=== PATIENT | female | born 1990 | race Caucasian/White ===

== ENCOUNTER → 2018-07-09 | Outpatient (CLI) | payer OTHER | END | disposition home or self-care (01) | LOC: LABWHC1 16:06 | PROVIDERS: ATTEND Internal Medicine | DX: Z34.90 Encounter for supervision of normal pregnancy, unspecified, unspecified trimester (principal) | CPT/HCPCS: 36415; 84702 ==

== ENCOUNTER 2018-07-13 20:00 | Emergency (ER) | payer OTHER ==
[2018-07-13] MEDS ORDERED: ACETAMINOPHEN TAB 500 MG TAB PO STA (20:42)
[2018-07-13] MEDS ORDERED: SODIUM CHLORIDE 0.9% 1,000 ML IV ONE (20:42)
--- NOTE | 2018-07-13 20:48 | ED ---
Abdominal Pain HPI - General Chief Complaint: Abdominal Pain Stated Complaint: 6 Weeks ,bleeding Time Seen by Provider: 07/13/18 20:10 Source: patient Mode of arrival: wheelchair Limitations: no limitations - History of Present Illness Initial Comments: 28-year-old female patient presents to the emergency department today for evaluation of suprapubic cramping and vaginal bleeding. Patient states that she is approximately 6 weeks . Patient is [id number]. She sees a Dr. Oconnor in [place] for obstetric care. Patient states that the bleeding started this morning. Patient states she has been wearing a pad but it is light bleeding. She has not had to change the pad. Patient denies any radiation of the pain through to her back. Patient denies any hematuria, dysuria, urinary frequency, urinary urgency. Patient is unsure when her last period was, states have been very irregular for the last couple of years. Patient did have Hcg level of 1700 on Friday. Patient denies any recent rash, fever, chills, shortness breath, chest pain, nausea, vomiting, diarrhea, constipation, back pain, numbness, tingling, dizziness, weakness, headache, visual changes, or any other complaints. - Related Data Home Medications Medication Instructions Recorded Confirmed Pnv,Calcium 72/Iron/Folic Acid 1 tab PO DAILY 03/11/16 07/13/18 [ Plus Tablet] Methadone HCl [Methadone Intensol] 95 mg PO DAILY 07/13/18 07/13/18 Allergies Allergy/AdvReac Type Severity Reaction Status Date / Time No Known Allergies Allergy Verified 07/13/18 20:40 Review of Systems ROS Statement: Those systems with pertinent positive or pertinent negative responses have been documented in the HPI. ROS Other: All systems not noted in ROS Statement are negative. Past Medical History Past Medical History: No Reported History History of Any Multi-Drug Resistant Organisms: None Reported Past Surgical History: Section Additional Past Surgical History / Comment(s): d&C, TONGUE CLIPPING Past Anesthesia/Blood Transfusion Reactions: No Reported Reaction Past Psychological History: Anxiety, Bipolar Smoking Status: Current every day smoker Past Alcohol Use History: None Reported Past Drug Use History: None Reported - Past Family History Father Family Medical History: No Reported History General Exam Limitations: no limitations General appearance: alert, in no apparent distress, other (Physical well- developed, well-nourished adult female patient in no acute distress. Vital signs upon presentation are temperature 97.9F, pulse 87, respiration 16, blood pressure 131/70, pulse ox 100% on room air.) Eye exam: Present: normal appearance, PERRL, EOMI. Absent: scleral icterus, conjunctival injection, periorbital swelling ENT exam: Present: normal exam, normal oropharynx, mucous membranes moist Respiratory exam: Present: normal lung sounds bilaterally. Absent: respiratory distress, wheezes, rales, rhonchi, stridor Cardiovascular Exam: Present: regular rate, normal rhythm, normal heart sounds. Absent: systolic murmur, diastolic murmur, rubs, gallop, clicks GI/Abdominal exam: Present: soft, tenderness (Suprapubic tenderness), normal bowel sounds. Absent: distended, guarding, rebound, rigid Neurological exam: Present: alert, oriented X3, CN II-XII intact Psychiatric exam: Present: normal affect, normal mood Skin exam: Present: warm, dry, intact, normal color. Absent: rash Course Vital Signs 07/13/18 07/13/18 20:01 23:33 Temperature 97.9 F 97.8 F Pulse Rate 87 89 Respiratory 16 18 Rate Blood Pressure 131/70 125/89 O2 Sat by Pulse 100 100 Oximetry Medical Decision Making - Medical Decision Making 28-year-old female patient presented to the emergency department today for evaluation of vaginal bleeding and pelvic pain. Physical examination did reveal mild suprapubic abdominal tenderness. Pelvic exam was performed, did show minimal bleeding from the cervical os. There is minimal bilateral adnexal tende rness. Labs reviewed and are unremarkable. HCG is currently 1090 down from 1700 on Friday. Ultrasound was obtained and did show a lesion in the left pelvis with high suspicion for ectopic . I did discuss the case with on-call PLANT MAINTENANCE ENGINEER Dr. Dodge, we did review patient's ultrasound and lab findings, Dr. Dodge agrees this has high suspicion for ectopic and recommends methotrexate administration. I did discuss the plan with the patient, she does agree to receive the methotrexate. She is instructed to follow-up with the PLANT MAINTENANCE ENGINEER for recheck as soon as possible. I did give her Dr. Dodge's information for follow-up however she does want to try to follow-up with her current PLANT MAINTENANCE ENGINEER Dr. Oconnor in [place]. Return parameters were discussed in detail. She verbalizes understanding and agrees with this plan - Lab Data Result diagrams: 07/13/18 20:17 07/13/18 20:17 Lab Results 07/13/18 07/13/18 07/13/18 Range/Units 20:17 20:17 20:17 WBC 10.7 H (3.8-10.6) k/uL RBC 4.82 (3.80-5.40) m/uL Hgb 13.5 (11.4-16.0) gm/dL Hct 40.9 (34.0-46.0) % MCV 84.8 (80.0-100.0) fL MCH 27.9 (25.0-35.0) pg MCHC 33.0 (31.0-37.0) g/dL RDW 14.2 (11.5-15.5) % Plt Count 275 (150-450) k/uL Neutrophils % 66 % Lymphocytes % 26 % Monocytes % 5 % Eosinophils % 1 % Basophils % 1 % Neutrophils # 7.0 (1.3-7.7) k/uL Lymphocytes # 2.7 (1.0-4.8) k/uL Monocytes # 0.6 (0-1.0) k/uL Eosinophils # 0.1 (0-0.7) k/uL Basophils # 0.1 (0-0.2) k/uL Sodium 140 (137-145) mmol/L Potassium 4.1 (3.5-5.1) mmol/L Chloride 107 (98-107) mmol/L Carbon Dioxide 25 (22-30) mmol/L Anion Gap 8 mmol/L BUN 6 L (7-17) mg/dL Creatinine 0.63 (0.52-1.04) mg/dL Est GFR (CKD-EPI)AfAm >90 (>60 ml/min/1.73 sqM) Est GFR (CKD-EPI)NonAf >90 (>60 ml/min/1.73 sqM) Glucose 90 (74-99) mg/dL Calcium 9.5 (8.4-10.2) mg/dL Total Bilirubin 0.2 (0.2-1.3) mg/dL AST 22 (14-36) U/L ALT 30 (9-52) U/L Alkaline Phosphatase 81 (38-126) U/L Total Protein 7.1 (6.3-8.2) g/dL Albumin 4.4 (3.5-5.0) g/dL HCG, Quant 1090.8 mIU/mL Urine Color Urine Appearance (Clear) Urine pH (5.0-8.0) Ur Specific [place] (1.001-1.035) Urine Protein (Negative) Urine Glucose (UA) (Negative) Urine Ketones (Negative) Urine Blood (Negative) Urine Nitrite (Negative) Urine Bilirubin (Negative) Urine Urobilinogen (<2.0) mg/dL Ur Leukocyte Esterase (Negative) Urine RBC (0-5) /hpf Urine WBC Clumps (None) /hpf Ur Squamous Epith Cells (0-4) /hpf Urine Mucus (None) /hpf Blood Type O Positive Blood Type Recheck No 07/13/18 Range/Units 20:17 WBC (3.8-10.6) k/uL RBC (3.80-5.40) m/uL Hgb (11.4-16.0) gm/dL Hct (34.0-46.0) % MCV (80.0-100.0) fL MCH (25.0-35.0) pg MCHC (31.0-37.0) g/dL RDW (11.5-15.5) % Plt Count (150-450) k/uL Neutrophils % % Lymphocytes % % Monocytes % % Eosinophils % % Basophils % % Neutrophils # (1.3-7.7) k/uL Lymphocytes # (1.0-4.8) k/uL Monocytes # (0-1.0) k/uL Eosinophils # (0-0.7) k/uL Basophils # (0-0.2) k/uL Sodium (137-145) mmol/L Potassium (3.5-5.1) mmol/L Chloride (98-107) mmol/L Carbon Dioxide (22-30) mmol/L Anion Gap mmol/L BUN (7-17) mg/dL Creatinine (0.52-1.04) mg/dL Est GFR (CKD-EPI)AfAm (>60 ml/min/1.73 sqM) Est GFR (CKD-EPI)NonAf (>60 ml/min/1.73 sqM) Glucose (74-99) mg/dL Calcium (8.4-10.2) mg/dL Total Bilirubin (0.2-1.3) mg/dL AST (14-36) U/L ALT (9-52) U/L Alkaline Phosphatase (38-126) U/L Total Protein (6.3-8.2) g/dL Albumin (3.5-5.0) g/dL HCG, Quant mIU/mL Urine Color Light Red Urine Appearance Cloudy H (Clear) Urine pH 7.0 (5.0-8.0) Ur Specific [place] 1.026 (1.001-1.035) Urine Protein 1+ H (Negative) Urine Glucose (UA) Negative (Negative) Urine Ketones Negative (Negative) Urine Blood Large H (Negative) Urine Nitrite Negative (Negative) Urine Bilirubin Negative (Negative) Urine Urobilinogen 2.0 (<2.0) mg/dL Ur Leukocyte Esterase Small H (Negative) Urine RBC >182 H (0-5) /hpf Urine WBC Clumps Few H (None) /hpf Ur Squamous Epith Cells 6 H (0-4) /hpf Urine Mucus Occasional H (None) /hpf Blood Type Blood Type Recheck - Radiology Data Radiology results: report reviewed, image reviewed Obstetrical ultrasound was obtained. Report was reviewed in its entirety. Impression by Dr. Burris shows strong suspicion for ectopic in the left pelvis adjacent left ovary as detailed above. Advised urgent OB consult. Disposition Clinical Impression: Ectopic Disposition: HOME SELF-CARE Condition: Good Instructions (If sedation given, give patient instructions): Methotrexate (By injection), Ectopic (DC) Additional Instructions: Follow-up with your PLANT MAINTENANCE ENGINEER as soon as possible. Dr. Dodge will see you in her office if you're unable to get into your OB. Return to the emergency department immediately for any new, worsening, or concerning symptoms per Is patient prescribed a controlled substance at d/c from ED?: No Referrals: Mohinder Oconnor MD [Primary Care Provider] - 1-2 days Samaria Dodge DO [Doctor of Osteopathic Medicine] - 1-2 days Time of Disposition: 22:49
[2018-07-13 21:02] LABS: Appearance,Urine Cloudy (Clear); Basophils # (A) 0.1 k/uL (0-0.2); Basophils % (A) 1 %; Bilirubin,Urine Negative (Negative); Blood,Urine Large (Negative); Color,Urine Light Red; Eosinophils # (A) 0.1 k/uL (0-0.7); Eosinophils % (A) 1 %; Glucose,Urine (UA) Negative (Negative); HCT 40.9 % (34.0-46.0); HGB 13.5 gm/dL (11.4-16.0); Ketones,Urine Negative (Negative); Leukocyte Esterase,Urine Small (Negative); Lymphocytes # (A) 2.7 k/uL (1.0-4.8); Lymphocytes % (A) 26 %; MCH 27.9 pg (25.0-35.0); MCV 84.8 fL (80.0-100.0); Mean Platelet Volume 8.3; Monocytes # (A) 0.6 k/uL (0-1.0); Monocytes % (A) 5 %; Mucus,Urine Occasional /hpf; Neutrophils % (A) 66 %; Nitrite,Urine Negative (Negative); Platelet Count 275 k/uL (150-450); Protein,Urine 1+ (Negative); RBC 4.82 m/uL (3.80-5.40); RBC,Urine >182 /hpf (0-5); RDW 14.2 % (11.5-15.5); Specific Gravity,Urine 1.026 (1.001-1.035); Squamous Epithelial Cell,Urine 6 /hpf (0-4); WBC 10.7 k/uL (3.8-10.6)
[2018-07-13 21:08] LABS: ALT 30 U/L (9-52); AST 22 U/L (14-36); Albumin 4.4 g/dL (3.5-5.0); Alkaline Phosphatase 81 U/L (38-126); Anion Gap 8 mmol/L; Blood Urea Nitrogen 6 mg/dL (7-17); Calcium 9.5 mg/dL (8.4-10.2); Carbon Dioxide 25 mmol/L (22-30); Chloride 107 mmol/L (98-107); Glucose 90 mg/dL (74-99); Potassium 4.1 mmol/L (3.5-5.1); Sodium 140 mmol/L (137-145); Total Bilirubin 0.2 mg/dL (0.2-1.3); Total Protein 7.1 g/dL (6.3-8.2)
[2018-07-13 21:24] LABS: HCG,Quantitative Serum 1090.8 mIU/mL
--- NOTE | 2018-07-13 22:10 | US ---
EXAMINATION TYPE: Transabdominal DATE OF EXAM: 07/13/2018 9:44 PM COMPARISON: NONE CLINICAL HISTORY: Pain. Pain and bleeding. EXAM PERFORMED: Transvaginal (TV) and Transabdominal (TA) EXAM MEASUREMENTS: GESTATIONAL AGE / DATING Physician Established: Not yet established Dates by LMP: LMP unknown Dates by First Scan: No previous this is first scan Dates by Current Scan for: No IUP seen at this time MATERNAL ANATOMY Uterus: 6.8 x 4.7 x 6.3 cm Right Ovary: 2.4 x 1.3 x 1.4 cm Left Ovary: 3.9 x 2.1 x 3.4 cm Post CDS / Adnexa: Left adnexal mass adjacent to ovary 3.4 x 2.0 x 2.2 cm suggestive of ectopic preg abram. Presence of free fluid: yes Presence of corpus luteal cyst: yes Presence of subchorionic bleed: no GESTATION / SURVEY IUP: No IUP seen at this time Beta HcG (if available): 1090.8 Left adnexal mass adjacent to left ovary 3.4 x 2.0 x 2.2cm suggestive of ectopic . Heterogeneous uterus is seen. Endometrium is thickened to 11 mm. No gestational sac, yolk sac, pole is present. There is small to moderate amount free fluid in pelvic cul-de-sac. Fluid appears not completely anechoic or nonsimple suggesting blood product Both ovaries are identified. Adjacent to left ovary with indistinct margins there is suspicious over 4 structure with central cystic component that has rim hyperechoic 2 to 3 mm structure suspicious for a gestational sac and yolk sac. Peripheral vascularity is present. No heart rate detected at this ti me. IMPRESSION: Strong suspicion for ectopic in the left pelvis adjacent to left ovary as ashlyn led above. Advise urgent OB consult.
[2018-07-13] MEDS ORDERED: METHOTREXATE SODIUM (PF) 25 MG/ML 2 ML VIAL IM STA (22:46)
[2018-07-13] MEDS ORDERED: ACET/COD 300 MG/30 MG STARTER PACK 6 TAB BTL PO STA (22:49)
[2018-07-13 23:34] VITALS: BP 125/89; PULSE 89; RESP 18; TEMP 97.8
== END 2018-07-13 23:34 | disposition home or self-care (01) ==
LOC: EC 20:00
DX: O00.90 Unspecified ectopic pregnancy without intrauterine pregnancy (principal); O99.331 Smoking (tobacco) complicating pregnancy, first trimester; F17.200 Nicotine dependence, unspecified, uncomplicated; Z79.891 Long term (current) use of opiate analgesic; Z3A.01 Less than 8 weeks gestation of pregnancy
CPT/HCPCS: 36415; 86900; 86901; 80053; 85025; 81001; 84702; 76801; 76817; 99284; 96360; 96361; 96372; J9260

== ENCOUNTER → 2018-07-17 | Outpatient (CLI) | payer OTHER | LOC: LABWHC1 10:11 | PROVIDERS: ATTEND Obstetrics & Gynecology Obstetrics | DX: O00.90 Unspecified ectopic pregnancy without intrauterine pregnancy (principal); Z3A.00 Weeks of gestation of pregnancy not specified | CPT/HCPCS: 36415; 84702 ==

== ENCOUNTER → 2018-07-20 | Outpatient (CLI) | payer OTHER | LOC: LABWHC1 14:02 | PROVIDERS: ATTEND Obstetrics & Gynecology Obstetrics | DX: O00.90 Unspecified ectopic pregnancy without intrauterine pregnancy (principal) | CPT/HCPCS: 36415; 84702 ==

== ENCOUNTER 2018-08-05 02:02 | Emergency (ER) | payer OTHER ==
[2018-08-05] MEDS ORDERED: SODIUM CHLORIDE 0.9% 500 ML 500 ML IV ONE (02:51)
[2018-08-05 03:54] LABS: Basophils % (A) 1 %; Eosinophils # (A) 0.1 k/uL (0-0.7); Eosinophils % (A) 2 %; HCT 41.6 % (34.0-46.0); HGB 13.4 gm/dL (11.4-16.0); Lymphocytes # (A) 1.6 k/uL (1.0-4.8); Lymphocytes % (A) 21 %; MCH 27.2 pg (25.0-35.0); MCHC 32.2 g/dL (31.0-37.0); MCV 84.3 fL (80.0-100.0); Mean Platelet Volume 7.6; Monocytes # (A) 0.5 k/uL (0-1.0); Monocytes % (A) 7 %; Neutrophils # (A) 5.5 k/uL (1.3-7.7); Neutrophils % (A) 69 %; Platelet Count 350 k/uL (150-450); RBC 4.93 m/uL (3.80-5.40); RDW 13.4 % (11.5-15.5)
--- NOTE | 2018-08-05 03:56 | ED ---
Female Urogenital HPI - General Source: patient Mode of arrival: ambulatory Limitations: no limitations <Allegra Dunaway - Last Filed: 08/05/18 04:29> <Paige Morejon - Last Filed: 08/05/18 05:39> - General Chief complaint: Vaginal Bleeding Stated complaint: Vaginal bleeding, post ectopic Time Seen by Provider: 08/05/18 02:23 - History of Present Illness Initial comments: A8 28-year-old female presenting today for chief complaint of increasing vaginal bleeding. Patient states that she had a recent ectopic and was given methotrexate approximately 19 days prior. Patient states she has had some bleeding and cramping since she states this seemed to have subsided however today she had heavy vaginal bleeding and some mild lower left-sided abdominal cramping. Patient states she was concerned there was complication of the ectopic . She states she has had 2 blood draws outpatient for serum hCGs which which initially was turning downward and she is not sure of the seco nd result. Patient has established care with PEDIATRIC PHYSICAL THERAPY ASSISTANT Dr. Dodge. Patient denies dysuria urgency frequency fever nausea vomiting or any other associated symptoms. Remaining review of systems negative upon arrival patient does not appear in acute distress. She is hemodynamically stable with normal blood pressure and heart rate (Allegar Dunaway) - Related Data Home Medications Medication Instructions Recorded Confirmed Methadone HCl [Methadone Intensol] 95 mg PO DAILY 07/13/18 08/05/18 Allergies Allergy/AdvReac Type Severity Reaction Status Date / Time No Known Allergies Allergy Verified 07/13/18 20:40 Review of Systems ROS Other: All systems not noted in ROS Statement are negative. <Allegra Dunaway - Last Filed: 08/05/18 04:29> ROS Other: All systems not noted in ROS Statement are negative. <Paige Morejon - Last Filed: 08/05/18 05:39> ROS Statement: Those systems with pertinent positive or pertinent negative responses have been documented in the HPI. Past Medical History Past Medical History: No Reported History Additional Past Medical History / Comment(s): ectopic History of Any Multi-Drug Resistant Organisms: None Reported Past Surgical History: Section Additional Past Surgical History / Comment(s): d&C, TONGUE CLIPPING Past Anesthesia/Blood Transfusion Reactions: No Reported Reaction Past Psychological History: Anxiety, Bipolar Smoking Status: Current every day smoker Past Alcohol Use History: None Reported Past Drug Use History: None Reported - Past Family History Father Family Medical History: No Reported History <Allegra Dunaway - Last Filed: 08/05/18 04:29> General Exam Limitations: no limitations <Allegra Dunaway - Last Filed: 08/05/18 04:29> - General Exam Comments Initial Comments: General: The patient is awake and alert, in no distress, and does not appear acutely ill. Eye: Pupils are equal, round and reactive to light, extra-ocular movements are intact. No nystagmus. There is normal conjunctiva bilaterally. No signs of icterus. Ears, nose, mouth and throat: There are moist mucous membranes and no oral lesions. Neck: The neck is supple, there is no tenderness or JVD. Cardiovascular: There is a regular rate and rhythm. No murmur, rub or gallop is appreciated. Respiratory: Lungs are clear to auscultation, respirations are non-labored, breath sounds are equal. No wheezes, stridor, rales, or rhonchi. Gastrointestinal: Soft, non-distended, non-tender abdomen without masses or organomegaly noted. There is no rebound or guarding present. No CVA tenderness. Bowel sounds are unremarkable. Pelvic: Mild left-sided adnexal tenderness. No cervical motion or right adnexal tenderness. Small amount of blood in the vaginal vault no external lesions vaginal mucosa is pink well rugated. Os appears closed. Blood coming from os. No vaginal discharge noted. Musculoskeletal: Normal ROM, no tenderness. Strength 5/5. Sensation intact. Pulses equal bilaterally 2+. Neurological: A&O x 3. CN II-XII intact, There are no obvious motor or sensory deficits. Coordination appears grossly intact. Speech is normal. Skin: Skin is warm and dry and no rashes or lesions are noted. Psychiatric: Cooperative, appropriate mood & affect, normal judgment. (Allegra Dunaway) Course Vital Signs 08/05/18 02:16 Temperature 98.2 F Pulse Rate 76 Respiratory 18 Rate Blood Pressure 146/84 O2 Sat by Pulse 99 Oximetry Medical Decision Making - Lab Data Result diagrams: 08/05/18 03:40 08/05/18 03:40 <Allegra Dunaway - Last Filed: 08/05/18 04:29> - Lab Data Result diagrams: 08/05/18 03:40 08/05/18 03:40 <Paige Morejon - Last Filed: 08/05/18 05:39> - Medical Decision Making 28-year-old female presented for evaluation of vaginal bleeding status post ectopic with treatment 19 days prior. She admits to lower abdominal cramping but was more so concerned with the vaginal bleeding. Repeat hCG was at 10. Pelvic revealed mild left sided adnexal tenderness. US pending, Dr. Morejon will complete patient care and final disposition pending US results. (Allegra Dunaway) She care was signed out to being by matilde Dunaway. Patient was awaiting results of her ultrasound. Ultrasound resulted with a persistent structure on the left ovary measuring 4.3 cm. These results were discussed with the patient's oncologist Dr. Dodge who states that based on the decreasing beta hCG she suspects that what's persisting is a hemorrhagic cyst. She recommends discharge patient will be seen in the office today. (Paige Morejon) - Lab Data Lab Results 08/05/18 08/05/18 08/05/18 Range/Units 03:40 03:40 03:40 WBC 8.0 (3.8-10.6) k/uL RBC 4.93 (3.80-5.40) m/uL Hgb 13.4 (11.4-16.0) gm/dL Hct 41.6 (34.0-46.0) % MCV 84.3 (80.0-100.0) fL MCH 27.2 (25.0-35.0) pg MCHC 32.2 (31.0-37.0) g/dL RDW 13.4 (11.5-15.5) % Plt Count 350 (150-450) k/uL Neutrophils % 69 % Lymphocytes % 21 % Monocytes % 7 % Eosinophils % 2 % Basophils % 1 % Neutrophils # 5.5 (1.3-7.7) k/uL Lymphocytes # 1.6 (1.0-4.8) k/uL Monocytes # 0.5 (0-1.0) k/uL Eosinophils # 0.1 (0-0.7) k/uL Basophils # 0.0 (0-0.2) k/uL Sodium 142 (137-145) mmol/L Potassium 3.4 L (3.5-5.1) mmol/L Chloride 104 (98-107) mmol/L Carbon Dioxide 28 (22-30) mmol/L Anion Gap 10 mmol/L BUN 10 (7-17) mg/dL Creatinine 0.67 (0.52-1.04) mg/dL Est GFR (CKD-EPI)AfAm >90 (>60 ml/min/1.73 sqM) Est GFR (CKD-EPI)NonAf >90 (>60 ml/min/1.73 sqM) Glucose 101 H (74-99) mg/dL Calcium 10.2 (8.4-10.2) mg/dL Total Bilirubin 0.4 (0.2-1.3) mg/dL AST 22 (14-36) U/L ALT 25 (9-52) U/L Alkaline Phosphatase 91 (38-126) U/L Total Protein 7.9 (6.3-8.2) g/dL Albumin 4.7 (3.5-5.0) g/dL HCG, Quant 10.6 mIU/mL Blood Type O Positive Blood Type Recheck No Antibody Screen NEGATIVE Spec Expiration Date 08/08/2018 - 2340 Disposition <Allegra Dunaway L - Last Filed: 08/05/18 04:29> Is patient prescribed a controlled substance at d/c from ED?: No Time of Disposition: 05:38 <Paige Morejon P - Last Filed: 08/05/18 05:39> Clinical Impression: Vaginal bleeding Disposition: HOME SELF-CARE Condition: Stable Instructions (If sedation given, give patient instructions): Menstruation (ED) Referrals: Ti Steward MD [Primary Care Provider] - 1-2 days Samaria Dodge DO [Doctor of Osteopathic Medicine] - 1-2 days
[2018-08-05 03:58] LABS: ALT 25 U/L (9-52); AST 22 U/L (14-36); Albumin 4.7 g/dL (3.5-5.0); Alkaline Phosphatase 91 U/L (38-126); Anion Gap 10 mmol/L; Blood Urea Nitrogen 10 mg/dL (7-17); Calcium 10.2 mg/dL (8.4-10.2); Carbon Dioxide 28 mmol/L (22-30); Chloride 104 mmol/L (98-107); Glucose 101 mg/dL (74-99); Potassium 3.4 mmol/L (3.5-5.1); Sodium 142 mmol/L (137-145); Total Bilirubin 0.4 mg/dL (0.2-1.3); Total Protein 7.9 g/dL (6.3-8.2)
[2018-08-05 04:15] LABS: HCG,Quantitative Serum 10.6 mIU/mL
--- NOTE | 2018-08-05 05:01 | US ---
EXAM: US Pelvis, Transvaginal CLINICAL HISTORY: ITS.REASON US Reason: previous ectopic/pain TECHNIQUE: Real-time transvaginal pelvic ultrasound (complete) with image documentation. Transvaginal imaging was used for better evaluation of the endometrium and adnexa. COMPARISON: Ultrasound 07/13/18 FINDINGS: Uterus/cervix: Unremarkable. Normal endometrial stripe thickness. No myometrial mass. Right ovary: No mass. Normal blood flow. Left ovary: There is a heterogeneous mass measuring up to 4.3 cm adjacent to the left ovary. Normal blood flow. Free fluid: No free fluid. IMPRESSION: Heterogeneous mass adjacent to left ovary measuring up to 4.3 cm. Again this is highly suspicious for ectopic . No ovarian torsion.
[2018-08-05 06:12] VITALS: BP 131/87; PULSE 80; RESP 20; TEMP 97.8
== END 2018-08-05 06:16 | disposition home or self-care (01) ==
LOC: EC 02:02
DX: N93.9 Abnormal uterine and vaginal bleeding, unspecified (principal); R10.30 Lower abdominal pain, unspecified; F17.200 Nicotine dependence, unspecified, uncomplicated; Z79.891 Long term (current) use of opiate analgesic; Z87.59 Personal history of other complications of pregnancy, childbirth and the puerperium
CPT/HCPCS: 36415; 76830; 80053; 84702; 85025; 86850; 86900; 86901; 93975; 96360; 96361; 99284

== ENCOUNTER 2018-08-30 22:35 | Emergency (ER) | payer OTHER ==
[2018-08-30] MEDS ORDERED: Acetaminophen-Codeine 300-30mg TAB PO STA (23:12)
[2018-08-31] MEDS ORDERED: LIDOCAINE 1% INJ 10MG/ML (20 ML MDV) SQ ONE (00:02)
--- NOTE | 2018-08-31 00:36 | ED ---
ENT HPI - General Chief complaint: Dental/Oral Stated complaint: Facial Swelling/pain Time Seen by Provider: 08/30/18 22:53 Source: patient Mode of arrival: ambulatory Limitations: no limitations - History of Present Illness Initial comments: Patient is a 28-year-old female presents emergency Department for dental pain and swelling. Patient reports her symptoms started 3 days ago when she visited the hospital on Friday and the prescriber a 10 day course of Augmentin. Patient reports minimal improvement in pain or swelling. patient reports poor dentition. Patient reports the pain is localized along her left side of the face and does not radiate anywhere. Patient denies fever, nausea, vomiting. Patient denies shortness of breath, chest pain or chest tightness. - Related Data Home Medications Medication Instructions Recorded Confirmed Methadone HCl [Methadone Intensol] 68 mg PO DAILY 07/13/18 08/30/18 Allergies Allergy/AdvReac Type Severity Reaction Status Date / Time No Known Allergies Allergy Verified 08/30/18 23:14 Review of Systems ROS Statement: Those systems with pertinent positive or pertinent negative responses have been documented in the HPI. ROS Other: All systems not noted in ROS Statement are negative. Past Medical History Past Medical History: No Reported History Additional Past Medical History / Comment(s): ectopic History of Any Multi-Drug Resistant Organisms: None Reported Past Surgical History: Section Additional Past Surgical History / Comment(s): D&C, TONGUE CLIPPING Past Anesthesia/Blood Transfusion Reactions: No Reported Reaction Past Psychological History: Anxiety, Bipolar Smoking Status: Current every day smoker Past Alcohol Use History: None Reported Past Drug Use History: Marijuana - Past Family History Father Family Medical History: No Reported History General Exam - General Exam Comments Initial Comments: General: Well-developed well-nourished distress HEENT: Normocephalic/atraumatic, PERLL, abscess measuring 0.05 cm in diameter with fluctuance located superior to tooth #10. Neck: Supple, nontender, trachea midline Chest/Lungs: Normal respirations, no signs of respiratory distress clear to auscultation bilaterally no wheezes, rales, rhonchi Cardiac: Regular rate and rhythm, normal S1-S2, no murmurs rubs or gallops Abdomen/GI: Soft nontender, bowel sounds equal or quadrant x4, no guarding, no rebound no CVA tenderness Musculoskeletal: Nontender, full range of motion, no edema, strength equal bilaterally Skin: Warmth, no rashes or lesions, no cyanosis or diaphoresis Neurologic: AAO x 3, CN 2-12 intact, Psychiatric: Mood and affect normal, judgment normal Limitations: no limitations Course Vital Signs 08/30/18 22:41 Temperature 98.4 F Pulse Rate 100 Respiratory 20 Rate Blood Pressure 137/85 O2 Sat by Pulse 100 Oximetry Procedures - Incision & Drainage Consent Obtained: verbal consent Indication: Dental abscess Site: other (Oral cavity) Size (cm): 1 Anesthetic Used: lidocaine 1% Amount (mLs): 5 Sterile Field Used?: No Needle Aspiration Performed?: Yes I&D Drainage Obtained: Pus, Blood Culture Obtained?: No Patient Tolerated Procedure: well Medical Decision Making - Medical Decision Making Patient is a 28-year-old female presented to emergency department for dental pain and swelling. Based on physical examination the patient appears to have a dental abscess and was drained using needle aspiration. A lot of pus was removed from area. Patient advised to continue taking the Augmentin. Patient given Tylenol 3 starter pack. Patient advised to follow with the dentist. Patient advised to return to emergency department if symptoms worsen. Case discussed with physician. Disposition Clinical Impression: Dental abscess Disposition: HOME SELF-CARE Condition: Stable Instructions (If sedation given, give patient instructions): Dental Abscess (ED) Additional Instructions: Patient advised to continue taking medication. Patient advised to return to emergency department if symptoms worsen. Patient advised to follow with a dentist. Is patient prescribed a controlled substance at d/c from ED?: No Referrals: Ti Steward MD [Primary Care Provider] - 1-2 days Time of Disposition: 00:36
[2018-08-31] MEDS ORDERED: ACET/COD 300 MG/30 MG STARTER PACK 6 TAB BTL PO STA (00:41)
[2018-08-31 00:42] VITALS: BP 132/97; PULSE 81; RESP 18; TEMP 98
== END 2018-08-31 00:50 | disposition home or self-care (01) ==
LOC: EC 22:35
DX: K04.7 Periapical abscess without sinus (principal); F17.200 Nicotine dependence, unspecified, uncomplicated; Z79.899 Other long term (current) drug therapy
CPT/HCPCS: 99283; 41800; J2001

== ENCOUNTER 2020-12-19 07:30 | Inpatient (IN) | payer OTHER ==
[2020-12-19] MEDS ORDERED: SODIUM CHLORIDE 0.9% 1,000 ML IV ONE (07:51)
--- NOTE | 2020-12-19 08:33 | ED ---
General Adult HPI - General Chief complaint: Vaginal Bleeding Stated complaint: vaginal bleeding Time Seen by Provider: 12/19/20 07:36 Source: patient, EMS, RN notes reviewed Mode of arrival: EMS Limitations: no limitations - History of Present Illness Initial comments: 30-year-old female currently approximately 7-8 weeks with an LMP of October 27 presents to the emergency room for a chief complaint of abdominal pain. Patient reports that she has had abdominal pain for the past 5 days as well as vaginal bleeding. Patient had gone to [place] and she thinks they could maybe see a of a but it was too early. Patient states yesterday the pain worsened and she was unable to walk without getting lightheaded so went to sleep. This morning she called 911. Patient with history of 2 ectopic pregnancies in the past.Patient has no other complaints at this time including shortness of breath, chest pain, abdominal pain, nausea or vomiting, headache, or visual changes. - Related Data Home Medications Medication Instructions Recorded Confirmed Cetirizine HCl [Zyrtec] 10 mg PO DAILY 12/19/20 12/19/20 Famotidine [Pepcid] 20 mg PO DAILY 12/19/20 12/19/20 Ketoconazole 2% Cream [Nizoral 2%] 1 applic TOPICAL DAILY PRN 12/19/20 12/19/20 Montelukast [Singulair] 10 mg PO DAILY 12/19/20 12/19/20 Pantoprazole [Protonix] 40 mg PO BID 12/19/20 12/19/20 Sucralfate [Carafate] 1 gm PO ACHS 12/19/20 12/19/20 Allergies Allergy/AdvReac Type Severity Reaction Status Date / Time No Known Allergies Allergy Verified 12/19/20 09:34 Review of Systems ROS Statement: Those systems with pertinent positive or pertinent negative responses have been documented in the HPI. ROS Other: All systems not noted in ROS Statement are negative. Past Medical History Past Medical History: No Reported History Additional Past Medical History / Comment(s): ectopic History of Any Multi-Drug Resistant Organisms: None Reported Past Surgical History: Section Additional Past Surgical History / Comment(s): D&C, TONGUE CLIPPING Past Anesthesia/Blood Transfusion Reactions: No Reported Reaction Past Psychological History: Anxiety, Bipolar Smoking Status: Current every day smoker Past Alcohol Use History: None Reported Past Drug Use History: Marijuana, Methamphetamine - Past Family History Father Family Medical History: No Reported History General Exam Limitations: no limitations General appearance: alert, in no apparent distress Head exam: Present: atraumatic Eye exam: Present: normal appearance, PERRL, EOMI ENT exam: Present: normal exam, mucous membranes moist Neck exam: Present: normal inspection, full ROM. Absent: tenderness Respiratory exam: Present: normal lung sounds bilaterally. Absent: respiratory distress, wheezes Cardiovascular Exam: Present: regular rate, normal rhythm, normal heart sounds GI/Abdominal exam: Present: soft, tenderness External exam: Present: normal external exam Speculum exam: Present: vaginal bleeding (mild) By manual exam: Present: adnexal tenderness, uterine tenderness Neurological exam: Present: alert Course Vital Signs 12/19/20 12/19/20 07:31 08:55 Temperature 97.3 F L Pulse Rate 97 93 Respiratory 18 18 Rate Blood Pressure 110/64 114/61 O2 Sat by Pulse 100 98 Oximetry Medical Decision Making - Medical Decision Making Vitals are stable. Patient did have one low blood pressure 91/64 but otherwise has been in the low 100s. Initially Dr. Mejia was notified of concern for ectopic upon patient arrival given he was initially believed to be administrative assistant receptionist. However he did call back to tell us to call Dr. Teague with any additional updates. CBC does show anemia of 9.4, baseline is 13. CMP unremarkable. HCG 2000. Obstetric ultrasound shows a complex left adnexal mass with possible hemorrhage within cul-de-sac and endometrium. Dr. Teague updated, she will be seeing patient in exam room. Dr. Teague did evaluate patient, wants patient to go to OR. Protocols were followed and patient will be transferred to or. Or is coming to get her. - Lab Data Result diagrams: 12/19/20 08:18 12/19/20 08:18 Lab Results 12/19/20 12/19/20 12/19/20 Range/Units 08:18 08:18 08:18 WBC 12.3 H (3.8-10.6) k/uL RBC 3.27 L (3.80-5.40) m/uL Hgb 9.4 L (11.4-16.0) gm/dL Hct 28.1 L (34.0-46.0) % MCV 86.1 (80.0-100.0) fL MCH 28.8 (25.0-35.0) pg MCHC 33.4 (31.0-37.0) g/dL RDW 13.0 (11.5-15.5) % Plt Count 275 (150-450) k/uL MPV 8.6 Neutrophils % 85 % Lymphocytes % 9 % Monocytes % 5 % Eosinophils % 0 % Basophils % 0 % Neutrophils # 10.5 H (1.3-7.7) k/uL Lymphocytes # 1.1 (1.0-4.8) k/uL Monocytes # 0.6 (0-1.0) k/uL Eosinophils # 0.1 (0-0.7) k/uL Basophils # 0.0 (0-0.2) k/uL Sodium 136 L (137-145) mmol/L Potassium 3.4 L (3.5-5.1) mmol/L Chloride 106 (98-107) mmol/L Carbon Dioxide 23 (22-30) mmol/L Anion Gap 7 mmol/L BUN 11 (7-17) mg/dL Creatinine 0.62 (0.52-1.04) mg/dL Est GFR (CKD-EPI)AfAm >90 (>60 ml/min/1.73 sqM) Est GFR (CKD-EPI)NonAf >90 (>60 ml/min/1.73 sqM) Glucose 103 H (74-99) mg/dL Calcium 8.9 (8.4-10.2) mg/dL Total Bilirubin 0.6 (0.2-1.3) mg/dL AST 32 (14-36) U/L ALT 21 (4-34) U/L Alkaline Phosphatase 66 (38-126) U/L Total Protein 6.1 L (6.3-8.2) g/dL Albumin 3.5 (3.5-5.0) g/dL HCG, Quant 2141.9 mIU/mL Blood Type O Positive Blood Type Recheck O Pos Bld Type Recheck Status No Antibody Screen NEGATIVE Spec Expiration Date 12/22/20202317 Disposition Clinical Impression: Elevated serum hCG, Adnexal mass Narrative: concern for ectopic Disposition: ADMITTED IP TO THIS [facility] Condition: Serious Referrals: Murphy Kelly MD [Primary Care Provider] - 1-2 days Time of Disposition: 10:35
[2020-12-19 08:40] LABS: Basophils % (A) 0 %; Eosinophils # (A) 0.1 k/uL (0-0.7); Eosinophils % (A) 0 %; HCT 28.1 % (34.0-46.0); HGB 9.4 gm/dL (11.4-16.0); Lymphocytes # (A) 1.1 k/uL (1.0-4.8); Lymphocytes % (A) 9 %; MCH 28.8 pg (25.0-35.0); MCHC 33.4 g/dL (31.0-37.0); MCV 86.1 fL (80.0-100.0); Mean Platelet Volume 8.6; Monocytes # (A) 0.6 k/uL (0-1.0); Monocytes % (A) 5 %; Neutrophils # (A) 10.5 k/uL (1.3-7.7); Neutrophils % (A) 85 %; Platelet Count 275 k/uL (150-450); RBC 3.27 m/uL (3.80-5.40); WBC 12.3 k/uL (3.8-10.6)
[2020-12-19 09:11] LABS: ALT 21 U/L (4-34); AST 32 U/L (14-36); African American GFR (CKD) >90 (>60 ml/min/1.73 sqM); Albumin 3.5 g/dL (3.5-5.0); Alkaline Phosphatase 66 U/L (38-126); Anion Gap 7 mmol/L; Blood Urea Nitrogen 11 mg/dL (7-17); Calcium 8.9 mg/dL (8.4-10.2); Carbon Dioxide 23 mmol/L (22-30); Chloride 106 mmol/L (98-107); Glucose 103 mg/dL (74-99); Non-African American GFR(CKD) >90 (>60 ml/min/1.73 sqM); Potassium 3.4 mmol/L (3.5-5.1); Sodium 136 mmol/L (137-145); Total Bilirubin 0.6 mg/dL (0.2-1.3); Total Protein 6.1 g/dL (6.3-8.2)
[2020-12-19 09:26] LABS: HCG,Quantitative Serum 2141.9 mIU/mL
--- NOTE | 2020-12-19 09:39 | US ---
EXAMINATION TYPE: Transabdominal DATE OF EXAM: 12/19/2020 9:10 AM COMPARISON: NONE CLINICAL HISTORY: pain. EC patient with severe pelvic pain and vaginal bleeding x 6 days; , Ecto pic x 2(methotrexate used) EXAM PERFORMED: Transvaginal (TV) and Transabdominal (TA), endovaginal scanning performed to better attempt visualization of the uterus and ovaries EXAM MEASUREMENTS: GESTATIONAL AGE / DATING Physician Established: Not yet established Dates by LMP: ( weeks/ days) EDC: Dates by First Scan: No previous Dates by Current Scan: No IUP seen and possible ectopic seen in left ovary/adnexa and better seen by TVUS MATERNAL ANATOMY Uterus: 11.4 x 11.1 x 6.6cm ; complex endometrium seen = 3.9 x 2.3 x 2.2cm; no IUP seen. Right Ovary: not identified on TV US Left Ovary: large complex mass = 5.3 x 4.3 x 5.4cm and as seen on TA images # 23 through #27. Post CDS / Adnexa: presence of free fluid and better seen on TV US = 3.3 x 7.3 x 4.2 x .523 = 52.9ml with low-level internal echoes Presence of corpus luteal cyst: not seen GESTATION / SURVEY Complex endometrial contents are noted on TV US with left adnexal mass and possible ectopic noted as round hypoechoic mass associated with complex adjacent irregular mass and abnormal amounts of free fluid in cul de sac on TV US. Date of LMP: 10/27/2020 Beta HcG (if available): IMPRESSION: Correlate for possible ectopic , irregular left adnexal mass is present. Possible hemorrhage within the cul-de-sac, endometrium Findings are not well-defined and transabdominal imaging. Results relayed telephonically to Mustapha at the time of interpretation.
--- NOTE | 2020-12-19 10:31 | P.HPOB ---
History of Present Illness H&P Date: 12/19/20 Chief Complaint: Pain and vaginal bleeding This is a 18 para 30 14 3 woman who presents with 5 day history of vaginal bleeding and severe abdominal pain for the last 12 hours. Beta-hCG is 2100 and she has findings of a complex left adnexal mass measuring 5.3 cm. Th ere is hemoperitoneum. She has a history of 3 prior ectopic as the most recent of which was in 2019 treated with methotrexate. She also has a history of one vaginal delivery and 2 sections. Her blood type is O+. Past medical history is significant for IV drug use. On physical examination the emergency room the patient is pale and ill appearing. She has significant abdominal pain with slight movement in the bed. Her breathing is unlabored. Her abdomen is distended with rebound and guarding in the lower quadrants bilaterally. She has scarring of the lower abdomen con sistent with previous Pfannenstiel incisions. Hemoglobin is 9.4. Plan is for emergent exploratory laparotomy with evacuation of hemoperitoneum. Possible left salpingo-oophorectomy, possible right salpingo-oophorectomy and indicated surgery. This plan is reviewed the patient and her partner in the emergency room. Risks include but are not limited to bleeding, transfusion, infection, damage to bowel, bladder, ureters and or other pelvic structures. 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 Operating room team has been notified of the case. Past Medical History Past Medical History: No Reported History Additional Past Medical History / Comment(s): ectopic History of Any Multi-Drug Resistant Organisms: None Reported Past Surgical History: Section Additional Past Surgical History / Comment(s): D&C, TONGUE CLIPPING Past Anesthesia/Blood Transfusion Reactions: No Reported Reaction Past Psychological History: Anxiety, Bipolar Smoking Status: Current every day smoker Past Alcohol Use History: None Reported Past Drug Use History: Marijuana, Methamphetamine - Past Family History Father Family Medical History: No Reported History Medications and Allergies Home Medications Medication Instructions Recorded Confirmed Type Cetirizine HCl [Zyrtec] 10 mg PO DAILY 12/19/20 12/19/20 History Famotidine [Pepcid] 20 mg PO DAILY 12/19/20 12/19/20 History Ketoconazole 2% Cream [Nizoral 2%] 1 applic TOPICAL DAILY PRN 12/19/20 12/19/20 History Montelukast [Singulair] 10 mg PO DAILY 12/19/20 12/19/20 History Pantoprazole [Protonix] 40 mg PO BID 12/19/20 12/19/20 History Sucralfate [Carafate] 1 gm PO ACHS 12/19/20 12/19/20 History Allergies Allergy/AdvReac Type Severity Reaction Status Date / Time No Known Allergies Allergy Verified 12/19/20 09:34 Exam Vital Signs Temp Pulse Resp BP Pulse Ox 12/19/20 08:55 93 18 114/61 98 12/19/20 07:31 97.3 F L 97 18 110/64 100 Intake and Output 12/18/20 12/19/20 12/19/20 22:59 06:59 14:59 Other: Weight 89.358 kg Results Result Diagrams: 12/19/20 08:18 12/19/20 08:18 Abnormal Lab Results - Last 24 Hours (Table) 12/19/20 12/19/20 Range/Units 08:18 08:18 WBC 12.3 H (3.8-10.6) k/uL RBC 3.27 L (3.80-5.40) m/uL Hgb 9.4 L (11.4-16.0) gm/dL Hct 28.1 L (34.0-46.0) % Neutrophils # 10.5 H (1.3-7.7) k/uL Sodium 136 L (137-145) mmol/L Potassium 3.4 L (3.5-5.1) mmol/L Glucose 103 H (74-99) mg/dL Total Protein 6.1 L (6.3-8.2) g/dL US - abdomen: report reviewed Assessment and Plan (1) Ectopic Current Visit: Yes Status: Acute Code(s): O00.90 - UNSPECIFIED ECTOPIC WITHOUT INTRAUTERINE SNOMED Code(s): 18358293 (2) Abdominal pain Current Visit: Yes Status: Acute Code(s): R10.9 - UNSPECIFIED ABDOMINAL PAIN SNOMED Code(s): 51164145 (3) Hemoperitoneum Current Visit: Yes Status: Acute Code(s): K66.1 - HEMOPERITONEUM SNOMED Code(s): 620008946
[2020-12-19] MEDS ORDERED: NALOXONE 0.4 MG/ML 1 ML VIAL IV PRN ×2 (10:33→14:42)
[2020-12-19] MEDS ORDERED: HYDROmorphone (PF) 1 MG/ML ONE (10:52)
[2020-12-19] MEDS ORDERED: ETOMIDATE 2 MG/ML 10 ML VIAL ONE (10:52)
[2020-12-19] MEDS ORDERED: MIDAZOLAM 2 MG/2 ML VIAL ONE (10:52)
[2020-12-19] MEDS ORDERED: GLYCOPYRROLATE 0.2 MG/ML 2 ML VIAL ONE (10:52)
[2020-12-19] MEDS ORDERED: ROCURONIUM 10 MG/ML (5 ML VIAL) IV ONE (10:52)
[2020-12-19] MEDS ORDERED: fentaNYL (PF) 50 MCG/ML 2 ML AMP ONE (10:52)
[2020-12-19] MEDS ORDERED: LIDOCAINE 1% INJ 10MG/ML (20 ML MDV) ONE (10:52)
[2020-12-19] MEDS ORDERED: NEOSTIGMINE 1 MG/ML 10 ML VIAL ONE (10:52)
[2020-12-19] MEDS ORDERED: SUCCINYLCHOLINE CHLORIDE 100 MG/5 ML SYR IV ONE (10:52)
[2020-12-19] MEDS ORDERED: CELLULOSE,OXIDIZED 1 EACH EACH MISCELLANE ONE (10:52)
[2020-12-19] MEDS ORDERED: LACTATED RINGERS 1,000 ML IV ONE ×2 (10:58→11:53)
[2020-12-19] MEDS ORDERED: SODIUM CHLORIDE 0.9% 50 ML with ceFAZolin 2,000 MG IV ONE ×2 (10:58)
[2020-12-19] MEDS ORDERED: HYDROmorphone 0.5 MG/0.5 ML SYRINGE IVP ONE ×2 (12:18→12:39)
[2020-12-19] MEDS ORDERED: diphenhydrAMINE 50 MG/ML 1 ML VIAL ONE (12:20)
[2020-12-19] MEDS ORDERED: diphenhydrAMINE 50 MG/ML 1 ML VIAL IVP ONE (12:22)
--- NOTE | 2020-12-19 12:23 | P.OP ---
Date of Procedure: 12/19/20 Preoperative Diagnosis: Abdominal pain Hemoperitoneum Suspected left ectopic . Postoperative Diagnosis: Abdominal pain Hemoperitoneum Left tubal ectopic Procedure(s) Performed: Exploratory laparotomy with evacuation of hemoperitoneum and left salpingectomy Anesthesia: MELVIN Surgeon: Daylin Teague Research Support Specialist #1: Samaria Dodge Estimated Blood Loss (ml): 650 IV fluids (ml): 700 Urine output (ml): 200 Pathology: other (Left fallopian tube) Condition: stable Disposition: PACU Indications for Procedure: This is a 30-year-old multi-gravid woman who presented to the emergency room with severe abdominal pain and vaginal bleeding. She had positive hCG of 2100. She had findings on ultrasound consistent with a complex left adnexal mass and fluid in the pelvis. Suspicion was for ruptured ectopic . Operative Findings: Large hemoperitoneum with organized dark clot and debris. The left fallopian tube is distended and extruding large clot from the fimbriated end. Description of Procedure: The patient was taken from the emergency room to the operating room where general anesthetic was administered without incident. Appropriate timeout procedure was undertaken. Mhamood catheter was placed. A low transverse skin incision was made on the through the pre-existing Pfannenstiel scar. This was carried down to the underlying fascia sharply with the scalpel and the Bovie electrocautery. The fascia was incised in the midline and extended bilaterally. The superior aspect of the fascial incision was grasped, elevated and the underlying rectus muscles dissected off sharply and with electrocautery. Of note she had very poor tissue quality. On the inferior aspect of the fascial incision was also elevated and the underlying rectus muscles dissected off sharply and with the electrocautery. The peritoneum was identified, tented up and entered sharply. Immediate dark hemoperitoneum was encountered. This was on suctioned. The peritoneal incision was then extended inferiorly and superiorly with good visualization the bladder. The self-retaining ring retractor was placed and the bowel was packed away. Large clots were manually evacuated from the pelvis. This allowed for visualization of the uterus and bilateral adnexa. The left fallopian tube appeared grossly distended and was actively extruding dark clot and bright red blood from the fimbriated end. The ovary appeared grossly normal. Fela clamps were utilized to completely transect the fallopian tube across the mesosalpinx to the cornual area. The fallopian tube was then amputated. The pedicles were doubly suture ligated. Hemostasis was noted. The pelvis was then copiously suction irrigated with evacuation of further hemoperitoneum. The right fallopian tube and ovary appeared grossly normal. The uterus appeared grossly normal. The surgical site was observed and no active bleeding was noted. Interceed adhesion preventive was placed about the ovary. The ring retractor was then removed. The peritoneum was reapproximated in the midline. Bovie electrocautery was utilized along the fascial edges and rectus muscles for hemostasis. The fascia was then closed in a running fashion with 0 Vicryl suture. The subcuticular tissue was copiously suction irrigated and reapproximated with 2-0 Vicryl suture. The skin was then closed using paolo. The patient did receive antibiotics preoperatively. She remained hemodynamically stable with stable vital signs throughout the procedure. She was awoken from general anesthetic without incident and transported recovery area in good condition. All counts reported to me as correct 2.
[2020-12-19] MEDS ORDERED: KETOROLAC 15 MG/ML 1 ML VIAL ONE (12:35)
[2020-12-19] MEDS ORDERED: KETOROLAC 15 MG/ML 1 ML VIAL IVP ONE (12:38)
[2020-12-19] MEDS ORDERED: ONDANSETRON 4 MG/2 ML VIAL IVP PRN (14:42)
[2020-12-19] MEDS ORDERED: METOCLOPRAMIDE 5 MG/ML 2 ML VIAL IVP PRN (14:42)
[2020-12-19] MEDS ORDERED: diphenhydrAMINE 50 MG/ML 1 ML VIAL IVP PRN (14:42)
[2020-12-19] MEDS ORDERED: diphenhydrAMINE 50 MG CAP PO PRN (14:42)
[2020-12-19] MEDS ORDERED: ACETAMINOPHEN IV (For NPO) 1,000 MG in EMPTY BAG 1 BAG IVPB ONE (14:42)
[2020-12-19] MEDS ORDERED: PROCHLORPERAZINE SUPPOSITORY 25 MG SUPP RECTAL PRN (14:42)
[2020-12-19] MEDS ORDERED: HYDROmorphone PCA 10 MG/50 ML BAG IV PRN (14:42)
[2020-12-19] MEDS: SUCRALFATE 1 GM TAB PO SCH ×3 (15:54→22:19)
[2020-12-19 16:56] LABS: Basophils % (A) 1 %; Eosinophils # (A) 0.1 k/uL (0-0.7); Eosinophils % (A) 1 %; HCT 25.3 % (34.0-46.0); HGB 8.2 gm/dL (11.4-16.0); Lymphocytes % (A) 22 %; MCH 28.3 pg (25.0-35.0); MCHC 32.3 g/dL (31.0-37.0); MCV 87.4 fL (80.0-100.0); Mean Platelet Volume 7.8; Monocytes # (A) 0.6 k/uL (0-1.0); Monocytes % (A) 7 %; Neutrophils # (A) 6.3 k/uL (1.3-7.7); Neutrophils % (A) 69 %; Platelet Count 225 k/uL (150-450); RBC 2.89 m/uL (3.80-5.40); RDW 13.1 % (11.5-15.5); WBC 9.1 k/uL (3.8-10.6)
[2020-12-19] MEDS: PANTOPRAZOLE 40 MG TABLET PO SCH (17:09)
[2020-12-19] MEDS: KETOROLAC 15 MG/ML 1 ML VIAL IVP PRN (18:34)
[2020-12-19] MEDS ORDERED: SODIUM CHLORIDE 0.9% 500 ML 500 ML IV ONE (19:11)
[2020-12-19] MEDS: FAMOTIDINE 20 MG/2 ML VIAL IV SCH (22:19)
[2020-12-19] MEDS: LACTATED RINGERS 1,000 ML IV SCH (22:20)
[2020-12-20] MEDS: KETOROLAC 15 MG/ML 1 ML VIAL IVP PRN ×4 (00:40→22:29)
[2020-12-20] MEDS: PANTOPRAZOLE 40 MG TABLET PO SCH ×2 (06:23→16:57)
[2020-12-20] MEDS: LACTATED RINGERS 1,000 ML IV SCH ×3 (06:23→22:31)
[2020-12-20] MEDS: SUCRALFATE 1 GM TAB PO SCH ×4 (06:23→19:38)
[2020-12-20 07:16] LABS: Basophils % (A) 1 %; Eosinophils # (A) 0.1 k/uL (0-0.7); Eosinophils % (A) 1 %; HCT 22.9 % (34.0-46.0); HGB 7.5 gm/dL (11.4-16.0); Lymphocytes # (A) 1.5 k/uL (1.0-4.8); Lymphocytes % (A) 23 %; MCH 28.4 pg (25.0-35.0); MCHC 32.5 g/dL (31.0-37.0); MCV 87.5 fL (80.0-100.0); Mean Platelet Volume 7.7; Monocytes # (A) 0.4 k/uL (0-1.0); Monocytes % (A) 6 %; Neutrophils # (A) 4.7 k/uL (1.3-7.7); Neutrophils % (A) 69 %; Platelet Count 211 k/uL (150-450); RBC 2.62 m/uL (3.80-5.40); RDW 12.9 % (11.5-15.5); WBC 6.9 k/uL (3.8-10.6)
--- NOTE | 2020-12-20 08:06 | P.PN ---
Subjective Progress Note Date: 12/20/20 Principal diagnosis: Abdominal pain, hemoperitoneum, ectopic She is postop day 1. She reports pain well controlled overnight with FRUIT BAR MAKER device. She has some discomfort with movement. Denies nausea or vomiting. No flatus as of yet. No vaginal bleeding. Mahmood catheter was only recently discontinued and she has not spontaneously voided yet. Objective - Vital Signs Vital signs: Vital Signs Temp 99.2 F 12/20/20 02:00 Pulse 79 12/20/20 02:00 Resp 16 12/20/20 04:21 BP 100/64 12/20/20 05:00 Pulse Ox 97 12/20/20 04:21 Intake & Output 12/19/20 12/20/20 12/20/20 18:59 06:59 18:59 Intake Total 1450 Output Total 1000 600 Balance 450 -600 Weight 89.358 kg Intake: IV 1450 Output: Urine 350 600 Uretheral (Mahmood) 400 Estimated Blood Loss 650 Other: Voiding Method Indwelling Catheter Indwelling Catheter - Exam Pale-appearing female in no acute distress. Targeted physical exam is performed. The abdomen is soft and not distended. There is tenderness in the bilateral lower quadrants. She has positive bowel sounds. Dressing is removed and the incision is intact with paolo. No vaginal bleeding noted. - Labs CBC & Chem 7: 12/20/20 06:57 12/19/20 08:18 Labs: Abnormal Lab Results - Last 24 Hours (Table) 12/19/20 12/19/20 12/19/20 Range/Units 08:18 08:18 08:18 WBC 12.3 H (3.8-10.6) k/uL RBC 3.27 L (3.80-5.40) m/uL Hgb 9.4 L (11.4-16.0) gm/dL Hct 28.1 L (34.0-46.0) % Neutrophils # 10.5 H (1.3-7.7) k/uL Sodium 136 L (137-145) mmol/L Potassium 3.4 L (3.5-5.1) mmol/L Glucose 103 H (74-99) mg/dL Total Protein 6.1 L (6.3-8.2) g/dL Crossmatch See Detail 12/19/20 12/20/20 Range/Units 16:40 06:57 WBC (3.8-10.6) k/uL RBC 2.89 L 2.62 L (3.80-5.40) m/uL Hgb 8.2 L 7.5 L (11.4-16.0) gm/dL Hct 25.3 L 22.9 L (34.0-46.0) % Neutrophils # (1.3-7.7) k/uL Sodium (137-145) mmol/L Potassium (3.5-5.1) mmol/L Glucose (74-99) mg/dL Total Protein (6.3-8.2) g/dL Crossmatch Assessment and Plan (1) Ectopic Current Visit: Yes Status: Acute Code(s): O00.90 - UNSPECIFIED ECTOPIC WITHOUT INTRAUTERINE SNOMED Code(s): 61633651 (2) Abdominal pain Current Visit: Yes Status: Acute Code(s): R10.9 - UNSPECIFIED ABDOMINAL PAIN SNOMED Code(s): 57310390 (3) Hemoperitoneum Current Visit: Yes Status: Acute Code(s): K66.1 - HEMOPERITONEUM SNOMED Code(s): 156656865 (4) S/P exploratory laparotomy Current Visit: Yes Status: Acute Code(s): Z98.890 - OTHER SPECIFIED POSTPROCEDURAL STATES SNOMED Code(s): 159160420 Plan: 30-year-old woman postop day 1 status post exploratory laparotomy with evacuation of hemoperitoneum and left salpingectomy. She has had marginal urine output overnight however is also had minimal by mouth. She received a bolus of IV fluids and she will be advanced to clear liquids this morning. Her hemoglobin did drop from preoperatively 9.4-7.5 this morning. Do not believe s he is having any further active bleeding. We will continue IV fluids at this time. Operative findings reviewed in detail with the patient. We will advance her diet slowly due to concerns for postop ileus as she had a significant hemoperitoneum. We will transition to oral pain medications and had a nicotine patch for history of tobacco use.
[2020-12-20] MEDS ORDERED: HYDROmorphone 1 MG/ML 1 ML SYRINGE IVP PRN (08:07)
[2020-12-20] MEDS: MONTELUKAST 10 MG TAB PO SCH (08:28)
[2020-12-20] MEDS: LORATADINE 10 MG TAB PO SCH (08:28)
[2020-12-20] MEDS: FAMOTIDINE 20 MG/2 ML VIAL IV SCH (08:31)
[2020-12-20] MEDS: HYDROcodone/APAP 5-325MG 1 EACH TAB PO PRN ×3 (08:36→19:38)
[2020-12-20] MEDS ORDERED: FAMOTIDINE 20 MG TAB PO SCH (09:00)
[2020-12-20] MEDS: NICOTINE 21MG/24HR PATCH TRANSDERM SCH (10:12)
--- NOTE | 2020-12-20 11:14 | CDI ---
Documentation Clarification Form Date: 12/20/2020 11:12:15 AM From: Puja Morrison RN, CCDS Admit Date: 12/19/2020 04:12:00 PM Patient Name: Claire Costello Visit Number: [id number] ATTENTION: The Clinical Documentation Specialists (CDI) and [facility] Coding Staff appreciate your assistance in clarifying documentation. Please respond to the clarification below the line at the bottom and electronically sign. The CDI & [facility] Coding staff will review the response and follow-up if needed. Please note: Queries are made part of the Legal Health Record. If you have any questions, please contact the author of this message via ITS. Dr. Daylin Teague Unspecified anemia is documented in the 12/19 ED Note. Additional specificity regarding the type & acuity of anemia is requested. 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 Hemoglobin: 9.4/8.2/7.5 Hematocrit: 28.1/25.3/22.9 Treatment: CBC Q 12 Typed and Crossed with 2 units PRBC's on Hold 12/19 1.5L 0.9% NS IVF Bolus IV LR @ 125 cc/hr. Please clarify the type and acuity of anemia: [ x ] Acute blood loss anemia [ ] Acute on chronic blood loss anemia [ ] Iron deficiency anemia [ ] Nutritional anemia [ ] Unable to determine [ ] Other, please specify (Template Last Revised: April 2020) MTDD
[2020-12-20] MEDS: FAMOTIDINE 20 MG TAB PO SCH (19:38)
[2020-12-21] MEDS: LACTATED RINGERS 1,000 ML IV SCH ×2 (05:07→08:18)
[2020-12-21] MEDS: HYDROcodone/APAP 5-325MG 1 EACH TAB PO PRN (05:34)
[2020-12-21] MEDS: KETOROLAC 15 MG/ML 1 ML VIAL IVP PRN (05:34)
[2020-12-21 06:25] LABS: HCT 23.8 % (34.0-46.0); HGB 7.9 gm/dL (11.4-16.0); MCH 29.2 pg (25.0-35.0); MCHC 33.4 g/dL (31.0-37.0); MCV 87.6 fL (80.0-100.0); Mean Platelet Volume 8.3; Platelet Count 239 k/uL (150-450); RBC 2.71 m/uL (3.80-5.40); RDW 13.1 % (11.5-15.5); WBC 7.1 k/uL (3.8-10.6)
[2020-12-21] MEDS: SUCRALFATE 1 GM TAB PO SCH ×2 (06:43→12:14)
[2020-12-21] MEDS: PANTOPRAZOLE 40 MG TABLET PO SCH (06:43)
[2020-12-21] MEDS: LORATADINE 10 MG TAB PO SCH (08:18)
[2020-12-21] MEDS: MONTELUKAST 10 MG TAB PO SCH (08:18)
[2020-12-21] MEDS: FAMOTIDINE 20 MG TAB PO SCH (08:18)
[2020-12-21] MEDS: NICOTINE 21MG/24HR PATCH TRANSDERM SCH (08:18)
--- NOTE | 2020-12-21 08:26 | P.PN ---
Subjective Progress Note Date: 12/21/20 Principal diagnosis: Abdominal pain, hemoperitoneum, ectopic She is postop day 1. She reports pain well controlled overnight with COMPUTER SYSTEMS ARCHITECT device. She has some discomfort with movement. Denies nausea or vomiting. No flatus as of yet. No vaginal bleeding. Mahmood catheter was only recently discontinued and she has not spontaneously voided yet. 12/21/2020: Postop day 2. She is feeling significantly better this morning. Pain is well controlled with IV Toradol and oral pain medications. She is passing gas and did tolerate some solid food last night. She is ambulating and voiding without difficulty. No dizziness or lightheadedness. Scant vaginal bleeding. Objective - Vital Signs Vital signs: Vital Signs Temp 98.5 F 12/21/20 02:00 Pulse 78 12/21/20 02:00 Resp 18 12/21/20 02:00 BP 98/62 12/21/20 02:00 Pulse Ox 98 12/21/20 02:00 Intake & Output 12/20/20 12/21/20 12/21/20 18:59 06:59 18:59 Intake Total 840 540 Output Total 1425 950 Balance -585 -410 Intake: Oral 840 540 Output: Urine 1425 950 Other: Voiding Method Toilet - Exam This is a pale but comfortable appearing female in no acute distress. HEENT exam unremarkable. Her breathing is unlabored. Heart is a regular rate and rhythm. The abdomen is soft and nondistended. There is some mild tenderness in the lower quadrants. Incision is intact with paolo, well healing without erythema or drainage. She has scant vaginal bleeding. No lower extremity edema. - Labs CBC & Chem 7: 12/21/20 05:13 12/19/20 08:18 Labs: Abnormal Lab Results - Last 24 Hours (Table) 12/19/20 12/21/20 Range/Units 08:18 05:13 RBC 2.71 L (3.80-5.40) m/uL Hgb 7.9 L (11.4-16.0) gm/dL Hct 23.8 L (34.0-46.0) % Crossmatch See Detail Assessment and Plan (1) Ectopic Current Visit: Yes Status: Acute Code(s): O00.90 - UNSPECIFIED ECTOPIC WITHOUT INTRAUTERINE SNOMED Code(s): 04243528 (2) Abdominal pain Current Visit: Yes Status: Acute Code(s): R10.9 - UNSPECIFIED ABDOMINAL PAIN SNOMED Code(s): 25938183 (3) Hemoperitoneum Current Visit: Yes Status: Acute Code(s): K66.1 - HEMOPERITONEUM SNOMED Code(s): 530483186 (4) S/P exploratory laparotomy Current Visit: Yes Status: Acute Code(s): Z98.890 - OTHER SPECIFIED POSTPROCEDURAL STATES SNOMED Code(s): 120593077 Plan: Postop day 2 status post exploratory laparotomy with evacuation of hemoperitoneum and left salpingectomy. Stable hemoglobin at 7.9. She had acute blood loss anemia and has no evidence of active bleeding at this time. Anticipate discharge home later today assuming she tolerates full general diet this morning and her pain is well-controlled.
[2020-12-21 08:31] VITALS: BP 105/69; PULSE 93; RESP 17; TEMP 98.7
[2020-12-21] MEDS ORDERED: IBUPROFEN 800 MG TAB PO PRN (08:31)
[2020-12-21] MEDS ORDERED: ACETAMINOPHEN TAB 325 MG TAB PO PRN (08:31)
--- NOTE | 2020-12-21 08:37 | P.DS ---
Providers Date of admission: 12/19/20 16:12 Expected date of discharge: 12/21/20 Attending physician: Daylin Teague Primary care physician: Murphy Kelly - Discharge Diagnosis(es) (1) Ectopic Current Visit: Yes Status: Acute (2) Abdominal pain Current Visit: Yes Status: Acute (3) Hemoperitoneum Current Visit: Yes Status: Acute (4) S/P exploratory laparotomy Current Visit: Yes Status: Acute Hospital Course: This is a 30-year-old 18 para 3 who presented with a several day history of worsening and severe abdominal pain. She had a positive hCG of 2100+. She was found on imaging to have free fluid in the pelvis as well as a left adnexal mass. This is consistent with probable ruptured ectopic . She was taken emergently for exploratory laparotomy. Findings at the time of surgery significant for proxy 650 mL's of hemoperitoneum both new and organized clot in the abdomen. There is an and distended left fallopian tube and extruding clot and debris out of the fimbriated end. She underwent a left salpingectomy. The left ovary, right fallopian tube and right ovary all appeared normal. Her postoperative course was essentially unremarkable. She did have a gerri of her hemoglobin at 7.5 however this remained stable postoperatively and currently on postop day 2 it is 7.9. Her diet was advanced slowly but she does have return of bowel function and is tolerating a general diet. She is ambulating and voiding without difficulty. The incision is well-healing. Procedures: Exploratory laparotomy with evacuation of hemoperitoneum and left salpingectomy. Patient Condition at Discharge: Good Plan - Discharge Summary Discharge Rx Participant: No New Discharge Prescriptions: New Ibuprofen [Motrin] 800 mg PO QID PRN #30 tab PRN Reason: Pain Acetaminophen Tab [Tylenol] 650 mg PO Q6HR PRN tab PRN Reason: Fever And/ Or Pain Continue Sucralfate [Carafate] 1 gm PO ACHS Montelukast [Singulair] 10 mg PO DAILY Ketoconazole 2% Cream [Nizoral 2%] 1 applic TOPICAL DAILY PRN PRN Reason: Rash Famotidine [Pepcid] 20 mg PO DAILY Cetirizine HCl [Zyrtec] 10 mg PO DAILY Pantoprazole [Protonix] 40 mg PO BID Discharge Medication List Cetirizine HCl [Zyrtec] 10 mg PO DAILY 12/19/20 [History] Famotidine [Pepcid] 20 mg PO DAILY 12/19/20 [History] Ketoconazole 2% Cream [Nizoral 2%] 1 applic TOPICAL DAILY PRN 12/19/20 [History] Montelukast [Singulair] 10 mg PO DAILY 12/19/20 [History] Pantoprazole [Protonix] 40 mg PO BID 12/19/20 [History] Sucralfate [Carafate] 1 gm PO ACHS 12/19/20 [History] Acetaminophen Tab [Tylenol] 650 mg PO Q6HR PRN tab 12/21/20 [Rx] Ibuprofen [Motrin] 800 mg PO QID PRN #30 tab 12/21/20 [Rx] Follow up Appointment(s)/Referral(s): Murphy Kelly MD [Primary Care Provider] - 1-2 days Daylin Teague MD [STAFF PHYSICIAN] - 1 Week Activity/Diet/Wound Care/Special Instructions: Follow-up in the office in 1 week. Alternate Motrin 800 mg and Tylenol extra strength H every 8 hours as needed for pain. No heavy lifting, vigorous activities or driving until seen postoperatively. No intercourse, nothing in the vagina. Leave dressing intact however contact the office with any redness, foul drainage, heavy vaginal bleeding, fever greater than 100.5, severe abdominal or pelvic pain, inability to void. Discharge Disposition: HOME SELF-CARE Pending Studies Pending Results: Discharge Pending toleration of general diet breakfast and lunch.
[2020-12-21] MEDS ORDERED: IBUPROFEN 400 MG TAB PO PRN (08:49)
== END 2020-12-21 13:55 | disposition home or self-care (01) | DRG 817 ==
LOC: EC 07:30 → 6PED 10:49 → OBSVTOIN 16:12
PROVIDERS: ADMIT Obstetrics & Gynecology; ATTEND Obstetrics & Gynecology
PROC: 0UT60ZZ Resection of Left Fallopian Tube, Open Approach (ICD-10-PCS; 2020-12-19)
PROC: 0WCJ0ZZ Extirpation of Matter from Pelvic Cavity, Open Approach (ICD-10-PCS; principal; 2020-12-19 08:30)
DX: O00.102 Left tubal pregnancy without intrauterine pregnancy (principal); K66.1 Hemoperitoneum; D62 Acute posthemorrhagic anemia; F17.200 Nicotine dependence, unspecified, uncomplicated; F41.9 Anxiety disorder, unspecified; Z79.899 Other long term (current) drug therapy; Z87.59 Personal history of other complications of pregnancy, childbirth and the puerperium; F31.9 Bipolar disorder, unspecified
CPT/HCPCS: 36415; 76801; 76817; 80053; 84702; 85025; 85027; 86850; 86900; 86901; 86920; 88305; 96360; 96361; 99285

== ENCOUNTER 2022-08-19 00:46 | Emergency (ER) | payer OTHER ==
[2022-08-19 00:58] VITALS: TEMP 98.2
[2022-08-19] MEDS ORDERED: SODIUM CHLORIDE 0.9% 1,000 ML IV STA (01:01)
[2022-08-19] MEDS ORDERED: ACETAMINOPHEN TAB 500 MG TAB PO STA (01:01)
[2022-08-19 01:33] LABS: Appearance,Urine Cloudy (Clear); Bilirubin,Urine Negative (Negative); Blood,Urine Moderate (Negative); Color,Urine Yellow; Glucose,Urine (UA) Negative (Negative); Ketones,Urine Trace (Negative); Leukocyte Esterase,Urine Large (Negative); Mucus,Urine Many /hpf; Nitrite,Urine Negative (Negative); PH, Urine 5.5 (5.0-8.0); Protein,Urine 1+ (Negative); RBC,Urine 29 /hpf (0-5); Specific Gravity,Urine 1.028 (1.001-1.035); Squamous Epithelial Cell,Urine 19 /hpf (0-4); WBC,Urine 20 /hpf (0-5)
[2022-08-19 02:24] LABS: Basophils % (A) 0 %; Eosinophils # (A) 0.1 k/uL (0-0.7); Eosinophils % (A) 1 %; HCT 41.2 % (34.0-46.0); Lymphocytes # (A) 2.2 k/uL (1.0-4.8); Lymphocytes % (A) 22 %; MCHC 34.1 g/dL (31.0-37.0); MCV 82.3 fL (80.0-100.0); Mean Platelet Volume 8.6; Monocytes # (A) 0.4 k/uL (0-1.0); Monocytes % (A) 4 %; Neutrophils # (A) 7.1 k/uL (1.3-7.7); Neutrophils % (A) 71 %; Platelet Count 298 k/uL (150-450); RDW 12.8 % (11.5-15.5); WBC 9.9 k/uL (3.8-10.6)
[2022-08-19 02:46] LABS: ALT 24 U/L (4-34); AST 30 U/L (14-36); African American GFR (CKD) >90 (>60 ml/min/1.73 sqM); Albumin 4.3 g/dL (3.5-5.0); Alkaline Phosphatase 76 U/L (38-126); Anion Gap 12 mmol/L; Blood Urea Nitrogen 5 mg/dL (7-17); Calcium 9.3 mg/dL (8.4-10.2); Carbon Dioxide 24 mmol/L (22-30); Chloride 103 mmol/L (98-107); Glucose 88 mg/dL (74-99); Lipase 45 U/L (23-300); Non-African American GFR(CKD) >90 (>60 ml/min/1.73 sqM); Sodium 139 mmol/L (137-145); Total Bilirubin 0.7 mg/dL (0.2-1.3); Total Protein 7.7 g/dL (6.3-8.2)
[2022-08-19 03:02] LABS: HCG,Quantitative Serum <2.4 mIU/mL
--- NOTE | 2022-08-19 03:16 | ED ---
Female Urogenital HPI - General Chief complaint: Vaginal Bleeding Stated complaint: Miscarriage Time Seen by Provider: 08/19/22 00:59 Source: patient Mode of arrival: ambulatory Limitations: no limitations - History of Present Illness Initial comments: Patient is a 32 year old female who presents to the emergency department for abdominal pain. Patient is unsure how many pregnancies she has had she thinks 22. She has 2 living at home. She is unsure how far along she is her last menstrual period was early May. She has history of irregular m enstrual cycles. With estimation patient is about 13-14 weeks . She has history of ruptured ectopic in 2020. Patient states she has had vaginal bleeding throughout the week soaking approximately 2-3 pads. Over the past 2 days she has had around 5 dime-sized blood clots and some tissue. Patient states she has not had any bleeding today but did develop pain in lower abdomen, worse in the left. The pain is mild patient denies any nausea or vomiting. She does not seen an OB for this but has followed with Dr. Ritter in the past. - Related Data Home Medications Medication Instructions Recorded Confirmed Cetirizine HCl [Zyrtec] 10 mg PO DAILY 12/19/20 12/19/20 Famotidine [Pepcid] 20 mg PO DAILY 12/19/20 12/19/20 Ketoconazole 2% Cream [Nizoral 2%] 1 applic TOPICAL DAILY PRN 12/19/20 12/19/20 Montelukast [Singulair] 10 mg PO DAILY 12/19/20 12/19/20 Pantoprazole [Protonix] 40 mg PO BID 12/19/20 12/19/20 Sucralfate [Carafate] 1 gm PO ACHS 12/19/20 12/19/20 Previous Rx's Medication Instructions Recorded Acetaminophen Tab [Tylenol] 650 mg PO Q6HR PRN tab 12/21/20 Ibuprofen [Motrin] 800 mg PO QID PRN #30 tab 12/21/20 Allergies Allergy/AdvReac Type Severity Reaction Status Date / Time No Known Allergies Allergy Verified 08/19/22 00:51 Review of Systems ROS Statement: Those systems with pertinent positive or pertinent negative responses have been documented in the HPI. ROS Other: All systems not noted in ROS Statement are negative. Past Medical History Past Medical History: No Reported History Additional Past Medical History / Comment(s): 2 ectopic History of Any Multi-Drug Resistant Organisms: None Reported Past Surgical History: Section Additional Past Surgical History / Comment(s): D&C, TONGUE CLIPPING , emergency lap Past Anesthesia/Blood Transfusion Reactions: No Reported Reaction Past Psychological History: Anxiety, Bipolar Smoking Status: Current every day smoker Past Alcohol Use History: None Reported Past Drug Use History: Heroin, Marijuana, Methamphetamine - Past Family History Mother Additional Family Medical History / Comment(s): high cholesterol Father Family Medical History: Cancer General Exam Limitations: no limitations General appearance: alert, in no apparent distress Eye exam: Present: normal appearance, PERRL, EOMI. Absent: scleral icterus, conjunctival injection, periorbital swelling Respiratory exam: Present: normal lung sounds bilaterally. Absent: respiratory distress, wheezes, rales, rhonchi, stridor Cardiovascular Exam: Present: regular rate, normal rhythm, normal heart sounds. Absent: systolic murmur, diastolic murmur, rubs, gallop, clicks Neurological exam: Present: alert, oriented X3, CN II-XII intact Psychiatric exam: Present: normal affect, normal mood Skin exam: Present: warm, dry, intact, normal color. Absent: rash Course Vital Signs 08/19/22 08/19/22 00:52 03:26 Temperature 98.2 F Pulse Rate 100 88 Respiratory 18 16 Rate Blood Pressure 144/95 128/77 O2 Sat by Pulse 100 100 Oximetry Medical Decision Making - Medical Decision Making Was pt. sent in by a medical professional or institution (, PA, MUSIC THERAPIST, urgent care, hospital, or half-way...) When possible be specific @ -No Did you speak to anyone other than the patient for history (EMS, parent, family, police, friend...)? What history was obtained from this source @ -No Did you review nursing and triage notes (agree or disagree)? Why? @ -I reviewed and agree with nursing and triage notes Were old charts reviewed (outside hosp., previous admission, EMS record, old EKG, old radiological studies, urgent care reports/EKG's, half-way records)? Report findings @ -No old charts were reviewed Differential Diagnosis (chest pain, altered mental status, abdominal pain women, abdominal pain men, vaginal bleeding, weakness, fever, dyspnea, syncope, headache, dizziness, GI bleed, back pain, seizure, CVA, palpatations, mental health)? @ -Differential Vaginal Bleeding: Spontaneous , threatened , molar , ectopic , bloody show, incompetent cervix, abruptioplacenta, placenta previa, uterine rupture, dysfunctional uterine bleeding, hemorrhage, uterine fibroids, this is not meant to be an all-inclusive list. EKG interpreted by me (3pts min.). @ -As above X-rays interpreted by me (1pt min.). @ -None done CT interpreted by me (1pt min.). @ -None done U/S interpreted by me (1pt. min.). @ -None done What testing was considered but not performed or refused? (CT, X-rays, U/S, labs)? Why? @ -None What meds were considered but not given or refused? Why? @ -None Did you discuss the management of the patient with other professionals (professionals i.e. , PA, MUSIC THERAPIST, lab, RT, psych nurse, manager social media, patient safety coordinator, teacher, contracts officer, showcase trimmer)? Give summary @ -No Was smoking cessation discussed for >3mins.? @ -No Was critical care preformed (if so, how long)? @ -No Were there social determinants of health that impacted care today? How? (Ho melessness, low income, unemployed, alcoholism, drug addiction, transportation, low edu. Level, literacy, decrease access to med. care, usp, rehab)? @ -No Was there de-escalation of care discussed even if they declined (Discuss DNR or withdrawal of care, Hospice)? DNR status @ -No What co-morbidities impacted this encounter? (DM, HTN, Smoking, COPD, CAD, Cancer, CVA, ARF, Chemo, Hep., AIDS, mental health diagnosis, sleep apnea, morbid obesity)? @ -None Was patient admitted / discharged? Hospital course, mention meds given and route, prescriptions, significant lab abnormalities, going to OR and other pertinent info. @ -This is a 32-year-old female with history of numerous miscarriages and ectopic presenting for vaginal bleeding and abdominal pain in . Patient is hemodynamically stable there is no abdominal tenderness.Laboratory studies obtained and are relatively unremarkable. HCG is < 2.4 Patient eloped prior to receiving results. Luckily RhoGAM is not indicated. I did review ultrasound which showed no IUP no suspicious adnexal lesion. With hCG being this low patient likely miscarried Undiagnosed new problem with uncertain prognosis? @ -No Drug Therapy requiring intensive monitoring for toxicity (Heparin, Nitro, Insulin, Cardizem)? @ -No Were any procedures done? @ -No Diagnosis/symptom? @ -Miscarriage Acute, or Chronic, or Acute on Chronic? @ -Acute Uncomplicated (without systemic symptoms) or Complicated (systemic symptoms)? @ -Uncomplicated Side effects of treatment? @ -No Exacerbation, Progression, or Severe Exacerbation? @ -No Poses a threat to life or bodily function? How? (Chest pain, [place], [place], pneumonia, PE, COPD, DKA, ARF, appy, cholecystitis, CVA, Diverticulitis, Homicidal, Suicidal, threat to staff... and all critical care pts) @ -No Dr. Gaona is my attending - Lab Data Result diagrams: 08/19/22 01:48 08/19/22 01:48 Lab Results 08/19/22 08/19/22 08/19/22 Range/Units 01:26 01:48 01:48 WBC 9.9 (3.8-10.6) k/uL RBC 5.00 (3.80-5.40) m/uL Hgb 14.0 (11.4-16.0) gm/dL Hct 41.2 (34.0-46.0) % MCV 82.3 (80.0-100.0) fL MCH 28.0 (25.0-35.0) pg MCHC 34.1 (31.0-37.0) g/dL RDW 12.8 (11.5-15.5) % Plt Count 298 (150-450) k/uL MPV 8.6 Neutrophils % 71 % Lymphocytes % 22 % Monocytes % 4 % Eosinophils % 1 % Basophils % 0 % Neutrophils # 7.1 (1.3-7.7) k/uL Lymphocytes # 2.2 (1.0-4.8) k/uL Monocytes # 0.4 (0-1.0) k/uL Eosinophils # 0.1 (0-0.7) k/uL Basophils # 0.0 (0-0.2) k/uL Sodium 139 (137-145) mmol/L Potassium 4.0 (3.5-5.1) mmol/L Chloride 103 (98-107) mmol/L Carbon Dioxide 24 (22-30) mmol/L Anion Gap 12 mmol/L BUN 5 L (7-17) mg/dL Creatinine 0.64 (0.52-1.04) mg/dL Est GFR (CKD-EPI)AfAm >90 (>60 ml/min/1.73 sqM) Est GFR (CKD-EPI)NonAf >90 (>60 ml/min/1.73 sqM) Glucose 88 (74-99) mg/dL Plasma Lactic Acid Sal (0.7-2.0) mmol/L Calcium 9.3 (8.4-10.2) mg/dL Total Bilirubin 0.7 (0.2-1.3) mg/dL AST 30 (14-36) U/L ALT 24 (4-34) U/L Alkaline Phosphatase 76 (38-126) U/L Total Protein 7.7 (6.3-8.2) g/dL Albumin 4.3 (3.5-5.0) g/dL Lipase 45 (23-300) U/L HCG, Quant <2.4 mIU/mL Urine Color Yellow Urine Appearance Cloudy H (Clear) Urine pH 5.5 (5.0-8.0) Ur Specific [place] 1.028 (1.001-1.035) Urine Protein 1+ H (Negative) Urine Glucose (UA) Negative (Negative) Urine Ketones Trace H (Negative) Urine Blood Moderate H (Negative) Urine Nitrite Negative (Negative) Urine Bilirubin Negative (Negative) Urine Urobilinogen 2.0 (<2.0) mg/dL Ur Leukocyte Esterase Large H (Negative) Urine RBC 29 H (0-5) /hpf Urine WBC 20 H (0-5) /hpf Ur Squamous Epith Cells 19 H (0-4) /hpf Urine Mucus Many H (None) /hpf Blood Type Blood Type Recheck Bld Type Recheck Status Antibody Screen Spec Expiration Date 08/19/22 08/19/22 Range/Units 01:48 01:50 WBC (3.8-10.6) k/uL RBC (3.80-5.40) m/uL Hgb (11.4-16.0) gm/dL Hct (34.0-46.0) % MCV (80.0-100.0) fL MCH (25.0-35.0) pg MCHC (31.0-37.0) g/dL RDW (11.5-15.5) % Plt Count (150-450) k/uL MPV Neutrophils % % Lymphocytes % % Monocytes % % Eosinophils % % Basophils % % Neutrophils # (1.3-7.7) k/uL Lymphocytes # (1.0-4.8) k/uL Monocytes # (0-1.0) k/uL Eosinophils # (0-0.7) k/uL Basophils # (0-0.2) k/uL Sodium (137-145) mmol/L Potassium (3.5-5.1) mmol/L Chloride (98-107) mmol/L Carbon Dioxide (22-30) mmol/L Anion Gap mmol/L BUN (7-17) mg/dL Creatinine (0.52-1.04) mg/dL Est GFR (CKD-EPI)AfAm (>60 ml/min/1.73 sqM) Est GFR (CKD-EPI)NonAf (>60 ml/min/1.73 sqM) Glucose (74-99) mg/dL Plasma Lactic Acid Sal 1.2 (0.7-2.0) mmol/L Calcium (8.4-10.2) mg/dL Total Bilirubin (0.2-1.3) mg/dL AST (14-36) U/L ALT (4-34) U/L Alkaline Phosphatase (38-126) U/L Total Protein (6.3-8.2) g/dL Albumin (3.5-5.0) g/dL Lipase (23-300) U/L HCG, Quant mIU/mL Urine Color Urine Appearance (Clear) Urine pH (5.0-8.0) Ur Specific [place] (1.001-1.035) Urine Protein (Negative) Urine Glucose (UA) (Negative) Urine Ketones (Negative) Urine Blood (Negative) Urine Nitrite (Negative) Urine Bilirubin (Negative) Urine Urobilinogen (<2.0) mg/dL Ur Leukocyte Esterase (Negative) Urine RBC (0-5) /hpf Urine WBC (0-5) /hpf Ur Squamous Epith Cells (0-4) /hpf Urine Mucus (None) /hpf Blood Type O Positive Blood Type Recheck O Pos Bld Type Recheck Status No Antibody Screen NEGATIVE Spec Expiration Date 08/22/20222349 Disposition Clinical Impression: Miscarriage Disposition: LEFT AGAINST MEDICAL ADVICE Condition: Good Instructions (If sedation given, give patient instructions): Miscarriage (ED) Additional Instructions: Follow up with Dr. Ritter in 1-2 days. Return to the emergency department if you experience new, concerning, or worsening symptoms. Is patient prescribed a controlled substance at d/c from ED?: No Referrals: Murphy Kelly MD [Primary Care Provider] - 1-2 days
[2022-08-19 03:29] VITALS: BP 128/77; PULSE 88; RESP 16
--- NOTE | 2022-08-19 04:28 | US ---
EXAM: US First Trimester , Transabdominal and Transvaginal CLINICAL HISTORY: ITS.REASON US Reason: VB hx of ectopic TECHNIQUE: Real-time transabdominal and transvaginal obstetrical ultrasound of the maternal pelvis and a first trimester with image documentation. Transvaginal imaging was used for better evaluation of the fetus and adnexa. COMPARISON: No relevant prior studies available. FINDINGS: Gestation: No intrauterine . Uterus/cervix: Unremarkable. Ovaries: Corpus luteal cyst on the right ovary. Normal left ovary. No suspicious adnexal lesion. Free fluid: No free fluid. IMPRESSION: No intrauterine .
== END 2022-08-19 04:16 | disposition left against medical advice (07) ==
LOC: EC 00:46
DX: O03.9 Complete or unspecified spontaneous abortion without complication (principal); O99.341 Other mental disorders complicating pregnancy, first trimester; F41.9 Anxiety disorder, unspecified; F31.9 Bipolar disorder, unspecified; O99.331 Smoking (tobacco) complicating pregnancy, first trimester; F17.200 Nicotine dependence, unspecified, uncomplicated; O99.321 Drug use complicating pregnancy, first trimester; F12.90 Cannabis use, unspecified, uncomplicated; F15.10 Other stimulant abuse, uncomplicated; Z79.899 Other long term (current) drug therapy; Z53.29 Procedure and treatment not carried out because of patient's decision for other reasons
CPT/HCPCS: 36415; 76801; 76817; 80053; 81001; 83605; 83690; 84702; 85025; 86850; 86900; 86901; 87086; 96360; 99284